=== PATIENT | male | born 1965 | race Two or more races ===

== ENCOUNTER → 2019-05-04 14:41 | Outpatient (CLI) | payer OTHER | END | disposition home or self-care (01) | LOC: LAB 14:41 | DX: R97.20 Elevated prostate specific antigen [PSA] (principal) ==

== ENCOUNTER → 2019-09-08 | Outpatient (CLI) | payer OTHER | END | disposition home or self-care (01) | LOC: SONOGRAMA 07:17 | DX: C61 Malignant neoplasm of prostate (principal); R97.20 Elevated prostate specific antigen [PSA] ==

== ENCOUNTER 2021-04-17 17:52 | Outpatient (CLI) | payer OTHER | END 2021-04-17 17:57 | disposition home or self-care (01) | LOC: LAB 17:52 | PROVIDERS: ATTEND Urology | DX: N39.0 Urinary tract infection, site not specified (principal); R97.20 Elevated prostate specific antigen [PSA] ==

== ENCOUNTER 2021-06-14 07:05 | Outpatient (CLI) | payer OTHER | END 2021-06-14 07:14 | disposition home or self-care (01) | LOC: SONOGRAMA 07:05 | PROVIDERS: ATTEND Urology | DX: D29.1 Benign neoplasm of prostate (principal); R97.20 Elevated prostate specific antigen [PSA] ==